=== PATIENT | male | born 1975 | race Two or more races ===

== ENCOUNTER → 2021-06-01 | Emergency (ER) | payer MEDICAID, OTHER ==
[~2021-06-01] VITALS: Ht 180.3 cm; Wt 95.3 kg
[2021-06-01 09:43] VITALS: BP 121/72
== END | disposition left against medical advice (07) ==
LOC: ER 09:39
DX: K62.89 Other specified diseases of anus and rectum (principal); Z53.21 Procedure and treatment not carried out due to patient leaving prior to being seen by health care provider